=== PATIENT | female | born 1975 | race Native Hawaiian/Other Pacific Islander ===

== ENCOUNTER 2017-09-07 14:11 | Emergency (ER) | payer OTHER ==
[~2017-09-07] VITALS: Ht 149.9 cm; Wt 81.6 kg
[2017-09-07 14:40] LABS: PLATELET COUNT 344 K/uL (152-353)
[2017-09-07 14:45] LABS: POTASSIUM 3.5 mmol/L (3.6-5.2); SODIUM 136 mmol/L (136-145)
[2017-09-07 14:50] LABS: PARTIAL THROMBOPLASTIN TIME 25.7 SECONDS (24.5-33.6)
[2017-09-07 15:40] VITALS: BP 125/79; TEMP 98
== END 2017-09-07 15:40 | disposition home or self-care (01) ==
LOC: ED 14:11
DX: I10 Essential (primary) hypertension (principal); R07.89 Other chest pain; R00.0 Tachycardia, unspecified
CPT/HCPCS: 36415; 80053; 82550; 82553; 84484; 85027; 85610; 85730; 93005; 99283

== ENCOUNTER 2019-07-30 08:53 | Outpatient (CLI) | payer OTHER | END 2019-07-30 19:38 | disposition home or self-care (01) | LOC: MAMMO 08:53 | DX: Z12.31 Encounter for screening mammogram for malignant neoplasm of breast (principal) ==